=== PATIENT | female | born 1990 | race American Indian/Alaskan Native ===

== ENCOUNTER 2016-08-23 13:20 | Emergency (ER) | payer MEDICAID ==
[2016-08-23 13:49] VITALS: BP 158/95
== END 2016-08-23 17:00 | disposition left against medical advice (07) ==
LOC: ED 13:20
DX: T19.2XXA Foreign body in vulva and vagina, initial encounter (principal); Z53.21 Procedure and treatment not carried out due to patient leaving prior to being seen by health care provider; X58.XXXA Exposure to other specified factors, initial encounter; Y93.89 Activity, other specified; Y92.89 Other specified places as the place of occurrence of the external cause; Y99.8 Other external cause status

== ENCOUNTER 2017-01-01 01:23 | Emergency (ER) | payer MEDICAID | END 2017-01-01 03:15 | disposition left against medical advice (07) | LOC: ED 01:23 | DX: J02.9 Acute pharyngitis, unspecified (principal); Z53.21 Procedure and treatment not carried out due to patient leaving prior to being seen by health care provider ==

== ENCOUNTER 2017-01-02 19:50 | Emergency (ER) | payer MEDICAID | END 2017-01-02 21:55 | disposition left against medical advice (07) | LOC: ED 19:50 | DX: J02.9 Acute pharyngitis, unspecified (principal); Z53.21 Procedure and treatment not carried out due to patient leaving prior to being seen by health care provider ==

== ENCOUNTER 2017-01-03 09:23 | Emergency (ER) | payer SELFPAY ==
--- NOTE | 2017-01-03 11:12 | Emergency Department Report ---
HPI - General Chief Complaint: Sore Throat Time Seen by Provider: 01/03/17 11:11 - HPI HPI: Patient here reports sore throat and cold symptoms for 2 weeks. She states that she is having congested cough. She says she took cough drops without any relief. Denies any nausea or vomiting. Sore throat is stated at 10 worse with swallowing. Denies any drooling or difficulty breathing and denies any shortness of breath or chest pain. Denies any facial pain or pressure. Reports nasal congestion and runny nose. ED Past Medical Hx - Past Medical History Previous Medical History?: No - Surgical History Past Surgical History?: Yes Additional Surgical History: x1 - Family History Family history: no significant - Social History Smoking Status: Never Smoker Substance Use Type: Alcohol, Non Opiate Pain - Medications Home Medications: Home Medications Medication Instructions Recorded Confirmed Last Taken Type Amoxicillin/K Clav Tab [Augmentin 1 tab PO Q12HR #20 tab 01/03/17 Unknown Rx 875 mg] Cetirizine HCl [ZyrTEC] 10 mg PO QAM #14 capsule 01/03/17 Unknown Rx Fluticasone [Flonase] 1 spray NS QDAY #1 bottle 01/03/17 Unknown Rx ED Review of Systems ROS: Stated complaint: SORE THROAT Other details as noted in HPI Comment: All other systems reviewed and negative Constitutional: no symptoms reported Eyes: denies: eye pain, eye discharge ENT: throat pain, congestion (nasal congestion and drainage). denies: ear pain , dental pain Respiratory: cough. denies: orthopnea, shortness of breath, SOB with exertion, SOB at rest, stridor, wheezing Cardiovascular: denies: chest pain, palpitations, edema, syncope Gastrointestinal: denies: abdominal pain, nausea, vomiting Genitourinary: denies: urgency, dysuria, frequency, hematuria, discharge Skin: denies: rash Neurological: denies: headache, numbness, paresthesias, confusion Physical Exam - Physical Exam Vital Signs: Vital Signs 01/03/17 09:41 Temperature 98 F Pulse Rate 81 Respiratory 20 Rate Blood Pressure 127/69 O2 Sat by Pulse 97 Oximetry General: This is a 36-year-old female well-nourished well-developed in no acute distress. Physical Exam: Head: Normocephalic, atraumatic, no abrasion, no bruising and no contusion. Eyes: Biateral pupils equal and reactive to light, bilateral EOM intact.. Bilateral conjunctival and sclera without injection, normal accommodation. Ears: Bilateral EAC without any redness drainage or swelling,bilateral TM congested without erythema. Bilateral tragus is normal and nontender. No auricular abnormality. No Mastoid bones tenderness. Nose: Moist, erythema and congested with clear drainage. No frontal or maxillary sinus tenderness. Mouth: Pharyngeal erythema. Uvula is midline and oral airways patent. Moist and tongue is normal. No peritonsillar abscess Neck: Supple, No Cervical adenopathy, full range of motion and no C-spine tenderness. No swelling or tracheal deviation Cardiovascular: S1, S2. Regular rate and rhythm. No murmur. Capillary refill is less then 3 seconds. Lungs: Clear to auscultate bilaterally. No rhonchi, wheezes or rales. No chest wall tenderness. Dry cough MSK: Strength 5/5 in all extremities. No joint deformity or crepitus. Normal inspection. Full range of motion to all extremities Extremities: No clubbing, cyanosis or edema. +2 pulses. No neurovascular compromise Skin: Clean, dry and intact. No rash or lesions. Psych: Normal mood and behavior. ED Course Vital Signs 01/03/17 09:41 Temperature 98 F Pulse Rate 81 Respiratory 20 Rate Blood Pressure 127/69 O2 Sat by Pulse 97 Oximetry - Reevaluation(s) Reevaluation #1: 01/03/17 12:57 Patient stable throughout ED stay ED Medical Decision Making - Medical Decision Making ED course: Patient with upper respiratory tract infection, cough and sore throat 2 weeks. I discussed the patient her diagnosis and treatment plan and let her know she will need to follow up with her primary care physician for follow-up upper respiratory tract infection. She was understands discharge diagnosis and treatment plan and discharged home with prescription for Zyrtec, Flonase and Augmentin. I discussed with her to gargle warm salt water couple times a day to relieve her sore throat and she can take Motrin as needed for sore throat. Patient is stable and discharged from ED in stable condition Critical care attestation.: If time is entered above; I have spent that time in minutes in the direct care of this critically ill patient, excluding procedure time. ED Disposition Clinical Impression: Cough in adult Upper respiratory tract infection Qualifiers: URI type: unspecified URI Qualified Code(s): J06.9 - Acute upper respiratory infection, unspecified Pharyngitis Qualifiers: Pharyngitis/tonsillitis etiology: unspecified etiology Qualified Code(s): J02.9 - Acute pharyngitis, unspecified Disposition: DC-01 TO HOME OR SELFCARE Is pt being admited?: No Does the pt Need Aspirin: No Condition: Stable Instructions: Acute Cough (ED), Upper Respiratory Infection (ED), Pharyngitis ( ED) Additional Instructions: Please increase her fluid intake Take medication as prescribed Follow-up with primary care physician or [facility] as necessary Prescriptions: Amoxicillin/K Clav Tab [Augmentin 875 mg] 1 tab PO Q12HR #20 tab Cetirizine HCl [ZyrTEC] 10 mg PO QAM #14 capsule Fluticasone [Flonase] 1 spray NS QDAY #1 bottle Referrals: PRIMARY CARE, [Primary Care Provider] - 2-3 Days [facility] [Outside] - 2-3 Days Forms: Work/School Release Form(ED)
[2017-01-03 13:15] VITALS: BP 116/73
== END 2017-01-03 13:16 | disposition home or self-care (01) ==
LOC: ED 09:23
DX: J06.9 Acute upper respiratory infection, unspecified (principal); J02.9 Acute pharyngitis, unspecified
CPT/HCPCS: 99282